=== PATIENT | female | born 1990 | race African-American/Black ===

== ENCOUNTER 2018-05-07 05:11 | Emergency (ER) | payer SELFPAY ==
[2018-05-07] MEDS ORDERED: Acetaminophen 500 MG TAB ONE (06:32)
[2018-05-07] MEDS ORDERED: Bupivacaine 0.5% 10 ML VIAL ONE (06:35)
== END 2018-05-07 06:52 | disposition home or self-care (01) ==
LOC: ERS 05:11
DX: K02.9 Dental caries, unspecified (principal); J45.909 Unspecified asthma, uncomplicated; F17.210 Nicotine dependence, cigarettes, uncomplicated
CPT/HCPCS: 64400; J3490

== ENCOUNTER 2018-09-04 06:54 | Emergency (ER) | payer OTHER ==
--- NOTE | 2018-09-04 08:53 | ULT ---
US Pelvic W Doppler History: [Emergency exam, , pain] Comparison: Ultrasound pelvis 2016 Findings: Real-time grayscale color and spectral analysis of the gravid uterus was performed transabd ominal approach. There is a single viable live intrauterine . Gestational sac is present as well as a p ole and yolk sac. Heart rate documented at 1 78 bpm. The right ovary is not seen. Hemorrhagic cyst present in left ovary. Adequate vascular flow to the le ft ovary. No significant subchorionic hemorrhage. The crown-rump length measures 2.42 cm, 9 week 1 day. The gestational sac diameter is 4.36 cm, 9 week s 6 day. Impression: Single viable intrauterine with average ultrasound age 9 week 4 day with estima lidia date of delivery April 05, 2019.
== END 2018-09-04 09:08 | disposition home or self-care (01) ==
LOC: ERS 06:54
DX: O99.89 Other specified diseases and conditions complicating pregnancy, childbirth and the puerperium (principal); O99.511 Diseases of the respiratory system complicating pregnancy, first trimester; J45.909 Unspecified asthma, uncomplicated; O99.331 Smoking (tobacco) complicating pregnancy, first trimester; Z3A.09 9 weeks gestation of pregnancy
CPT/HCPCS: 76856; 93976